=== PATIENT | female | born 1990 | race Caucasian/White ===

== ENCOUNTER 2018-01-26 12:05 | Emergency (ER) | payer OTHER ==
[~2018-01-26] VITALS: Ht 167.6 cm; Wt 92.0 kg
[~2018-01-26 12:05] MED LIST: NOHOMEMEDS
[2018-01-26 12:33] LABS: HEMATOCRIT 36.9 % (36.0-46.0); HEMOGLOBIN 12.8 G/DL (11.9-15.5); MCH 29.5 PG (29.0-34.0); MCHC 34.7 G/DL (30.0-36.0); PLATELET COUNT 277 K/uL (156-360); RBC DIS.WIDTH-CV 12.6 % (11.8-14.6); RED BLOOD COUNT 4.34 M/uL (3.80-5.20); WHITE BLOOD COUNT 9.1 K/uL (4.1-10.2)
[2018-01-26 12:46] LABS: CHLORIDE 107 mEq/L (99-109); SODIUM 140 mEq/L (136-147)
[2018-01-26 12:48] LABS: GLUCOSE 106 mg/dL (70-99)
[2018-01-26 12:52] LABS: CREATININE 0.8 mg/dL (0.6-1.3); GFR ESTIMATE (CALCULATED) > 59 mL/min/
[2018-01-26 12:53] LABS: UREA NITROGEN (BUN) 9 mg/dL (9-23)
[2018-01-26 13:00] LABS: D-DIMER ELISA < 150.00 ng/mLDDU (<230)
[2018-01-26 13:20] LABS: TROP-I INTERPRETATION NEGATIVE; TROPONIN-I < 0.01 ng/mL (0.0-0.30)
[2018-01-26 13:24] LABS: QUANTITATIVE HCG < 4.0 MIU/ML
[2018-01-26] MEDS ORDERED: MOTRIN800 MG PO (13:40)
[2018-01-26 13:50] VITALS: BP 126/78
== END 2018-01-26 14:00 | disposition home or self-care (01) ==
LOC: EME 12:05
PROVIDERS: Nurse Practitioner Family
DX: M94.0 Chondrocostal junction syndrome [Tietze] (principal); R09.1 Pleurisy
CPT/HCPCS: 71046; 80048; 84484; 84702; 85027; 85379; 93005; 99281; 99284